=== PATIENT | male | born 1970 | race Caucasian/White ===

== ENCOUNTER 2019-04-07 10:33 | Emergency (ER) | payer SELFPAY ==
--- NOTE | 2019-04-07 11:20 | EDM.PDOC ---
ED HPI GENERAL MEDICAL PROBLEM - General Chief Complaint: General Stated Complaint: MAYBE FLU?? Time Seen by Provider: 04/07/19 11:05 Source of Information: Reports: Patient, RN History Limitations: Reports: No Limitations - History of Present Illness INITIAL COMMENTS - FREE TEXT/NARRATIVE: 48 yo male nonsmoker presents with a moderate cough for about a week. May have had a fever the first day, but not since. No hx of asthma. Is not SOB. No pleuritic chest pain. Has not been seen in the clinic. Cough is nonproductive. Minimal clear rhinorrhea is present. Onset: Gradual Onset Date: 03/31/19 Duration: Week(s): (1), Improving (slow improvement) Location: Reports: Chest Quality: Reports: Other (no pain) Severity: Mild Improves with: Reports: Other (? time) Worsens with: Reports: None Context: Reports: Other (unknown ) Associated Symptoms: Reports: Cough. 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 Denies: Shortness of Breath, Wheezing, Sputum, Hemoptysis Cardiovascular: Reports: No Symptoms GI/Abdominal: Reports: No Symptoms : Reports: No Symptoms Musculoskeletal: Reports: No Symptoms Skin: Reports: No Symptoms Neurological: Reports: No Symptoms ED EXAM, GENERAL - Physical Exam Exam: See Below Exam Limited By: No Limitations General Appearance: Alert, WD/WN, No Apparent Distress Eye Exam: Bilateral Eye: Normal Inspection Ears: Normal External Exam, Normal Canal, Hearing Grossly Normal, Normal TMs Ear Exam: Bilateral Ear: Auricle Normal, Canal Normal, TM normal Nose: Normal Inspection, No Blood, Clear Rhinorrhea Throat/Mouth: Normal Inspection, Normal Lips, Normal Oropharynx, Normal Voice, No Airway Compromise Head: Atraumatic, Normocephalic Neck: Normal Inspection Respiratory/Chest: No Respiratory Distress, Lungs Clear, Normal Breath Sounds, No Accessory Muscle Use Cardiovascular: Regular Rate, Rhythm, No Edema Extremities: Normal Inspection Neurological: Alert, Oriented, CN II-XII Intact, Normal Cognition, No Motor/ Sensory Deficits Psychiatric: Normal Affect, Normal Mood Skin Exam: Warm, Dry, Intact, Normal Color, No Rash Course - Vital Signs Last Recorded V/S: Last Vital Signs Temp 36.6 C 04/07/19 11:06 Pulse 73 04/07/19 11:06 Resp 16 04/07/19 11:06 BP 133/81 04/07/19 11:06 Pulse Ox 99 04/07/19 11:06 Departure - Departure Time of Disposition: 11:19 Disposition: Home, Self-Care 01 Condition: Good Clinical Impression: Viral URI with cough - Discharge Information *PRESCRIPTION DRUG MONITORING PROGRAM REVIEWED*: No *COPY OF PRESCRIPTION DRUG MONITORING REPORT IN PATIENT ESTEFANI: No Instructions: Cough, Adult, [id number] Referrals: PCP,None [Primary Care Provider] - Additional Instructions: Use Robitussin AC as needed for cough symptoms. Drink ample fluids. Recheck if worse. Sepsis Event Note - Evaluation Sepsis Screening Result: No Definite Risk - Focused Exam Vital Signs: Vital Signs Temp Pulse Resp BP Pulse Ox 04/07/19 11:06 36.6 C 73 16 133/81 99 04/07/19 10:57 36.6 C 73 16 133/81 99 Date Exam was Performed: 04/07/19 Time Exam was Performed: 11:15
== END 2019-04-07 11:32 | disposition home or self-care (01) ==
LOC: JP.ED 10:33
DX: J06.9 Acute upper respiratory infection, unspecified (principal)
CPT/HCPCS: 99282; 99283

== ENCOUNTER 2022-04-21 13:54 | Emergency (ER) | payer OTHER ==
[2022-04-21] MEDS ORDERED: Ketorolac 10 MG Tab PO ONE (15:19)
== END 2022-04-21 16:43 | disposition home or self-care (01) ==
LOC: JP.ED 13:54
DX: M25.562 Pain in left knee (principal)
CPT/HCPCS: 73564; 99282; 99283; A9270